=== PATIENT | female | born 1955 | race Caucasian/White ===

== ENCOUNTER 2019-08-13 04:57 | Inpatient (IN) ==
--- NOTE | 2019-07-21 19:38 | PAT Medication Instructions ---
Medication Instructions Date of Service July 21, 2019 Home Medications atenolol-chlorthalidone 1 tab PO QAM 07/15/19 [History Confirmed 07/15/19] cholecalciferol (vitamin D3) [Vitamin D3] 25 mcg PO DAILY 07/15/19 [History Confirmed 07/15/19] levothyroxine 112 mcg PO QAM 07/15/19 [History Confirmed 07/15/19] omeprazole 40 mg PO QAM 07/15/19 [History Confirmed 07/15/19] DO NOT take the morning of surgery cholecalciferol (vitamin D3) [Vitamin D3] 25 mcg PO DAILY 07/15/19 [History Confirmed 07/15/19] Take morning of surgery With a small sip of water, OTHERWISE NOTHING TO EAT OR DRINK AFTER MIDNIGHT: atenolol-chlorthalidone 1 tab PO QAM 07/15/19 [History Confirmed 07/15/19] levothyroxine 112 mcg PO QAM 07/15/19 [History Confirmed 07/15/19] omeprazole 40 mg PO QAM 07/15/19 [History Confirmed 07/15/19] Other Notes If you have any questions please call us at [phone] or [phone] or [phone] or [phone]
--- NOTE | 2019-07-22 11:03 | Anesthesiology Consultation ---
Date of Service July 22, 2019 Assessment & Plan (1) Encounter for pre-operative examination: - Awaiting review of preop testing (labs, EKG, CXR). - PCP: 07/16/2019: "medically optimized before surgery." Will forward preop t esting to PCP for their reference. Chart Review Chart Review: Patient seen in Pre Admission Testing Teaching & Discussion Pre-Anesthesia Teaching/Discussion Notes: Instructed NPO after midnight before surgery,except medications with 15 cc of water. Medication instructions provided according to the PAT guidelines. History Surgery Operation Date: 08/13/19 13:10 Proposed Procedures p Total Knee Arthroplasty - Ted Judd MD Height/Weight Height: 5 ft 7 in Weight: 133.3 kg Allergies Allergy/AdvReac Type Severity Reaction Status Date / Time aspirin Allergy Unknown Hives Verified 07/15/19 15:24 Penicillins Allergy Unknown Hives Verified 07/15/19 15:24 Medications Home Medications Medication Instructions Recorded Confirmed Last Taken atenolol-chlorthalidone 1 tab PO QAM 07/15/19 07/15/19 Unknown cholecalciferol (vitamin D3) 25 mcg PO DAILY 07/15/19 07/15/19 Unknown [Vitamin D3] levothyroxine 112 mcg PO QAM 07/15/19 07/15/19 07/15/19 omeprazole 40 mg PO QAM 07/15/19 07/15/19 07/15/19 Past Medical History Medical History Acid reflux controlled History of seizures as child (head injury at age 4), no seizure since age 13 History of skin cancer s/p Moh's procedure Hypertension Hypothyroidism Morbid obesity Osteoarthritis Exercise / Class Metabolic Activity II 4-5 Yardwork/Stairs/Walk up hill (one flight of stairs (no chest pain/no sob)) Past Family History Family History Other Family history of diabetes mellitus in father Past Surgical History Surgical History History of colonoscopy History of endoscopy History of tubal ligation History of wisdom tooth extraction Past Anesthesia History No Hx of Anesthesia Complications and No Family Hx of Anesthesia Complications History of PONV No Hx of PONV and No Hx of Motion Sickness Social History Smoking Status: Never smoker Do You Dip or Chew Tobacco: No Hx Alcohol Use: No Hx Substance Use: No substance use type: does not use Review of Systems Reflux controlled. Patient denies chest pain, shortness of breath, dyspnea on exertion, cough, wheezing, palpitations. Physical Exam Vital Signs VITALS BP 115/71 P 59 TEMP 99.2 SP02 97%RA RESP 18 PHYSICAL Full neck and c-spine range of motion. Full TMJ range of motion. TMD 3.5 finger breaths Mallampati Score 2 Dentition: partial upper, several missing on lower Lungs: clear throughout to auscultation Cardiac: regular rate and rhythm, no murmurs noted Spine: normal Carotid arteries: negative bruit Extremities: no edema
--- NOTE | 2019-07-22 11:48 | XRay Report ---
XR chest Pre-admission PA/Lat CLINICAL HISTORY: 64 years-old Female presenting with preoperative assessment. TECHNIQUE: PA and lateral views of the chest were obtained. COMPARISON: None. FINDINGS: Cardiomediastinal silhouette normal. Lungs and pleural spaces clear. Degenerative changes of the thor acic spine. Upper abdomen normal. IMPRESSION: 1. No acute cardiopulmonary disease. ACT 112: Negative or not required by law. Electronically signed by: Genaro Hagan M.D. 07/22/2019 11:46 AM
[2019-07-22 12:11] LABS: Appearance Urine Clear (Clear); Bilirubin Urine Negative (Negative); Blood Urine Negative (Negative); Color Urine Yellow; Glucose Urine UA Negative (Negative); Ketones Urine Trace (Negative); Leukocyte Esterase Urine Negative (Negative); Nitrite Urine Negative (Negative); Protein Urine Negative (Negative); Specific Gravity Urine 1.025 (1.000-1.030); Urobilinogen Urine Negative (Negative); pH Urine 5.5 (4.5-7.5)
[2019-07-22 12:11] LABS: Basophils # (auto) 0.01 K/uL (0-0.2); Basophils % (auto) 0.2 %; Eosinophils # (auto) 0.04 K/uL (0-0.5); Eosinophils % (auto) 0.6 %; Hematocrit (blood only) 38.8 % (37-47); Hemoglobin 12.3 g/dL (12.0-16.0); Immature Granulocytes # (auto) 0.04 K/uL (0.00-0.02); Immature Granulocytes % (auto) 0.6 %; Lymphocytes # (auto) 1.17 K/uL (1.2-3.4); Mean Corpuscular Hemoglobin 26.3 pg (25-34); Mean Corpuscular Hgb Conc 31.7 g/dL (32-36); Mean Corpuscular Volume 82.9 fL (80-100); Mean Platelet Volume 10.1 fL (7.4-10.4); Monocytes # (auto) 0.32 K/uL (0.11-0.59); Monocytes % (auto) 4.9 %; Neutrophils # (auto) 4.93 K/uL (1.4-6.5); Neutrophils % (auto) 75.7 %; Platelet Count 263 K/uL (130-400); RDW Coefficient of Variation 15.5 % (11.5-14.5); RDW Standard Deviation 46.6 fL (36.4-46.3); Red Blood Count 4.68 M/uL (4.2-5.4); White Blood Count 6.51 K/uL (4.8-10.8)
[2019-07-22 12:28] LABS: Estimated Average Glucose 114 mg/dl; Hemoglobin A1C 5.6 % (4.5-5.6); Partial Thromboplastin Time 27.7 Seconds (21.0-31.0); Prothrombin Time 9.9 Seconds (9.0-12.0)
[2019-07-22 14:08] LABS: Albumin Level 3.4 gm/dl (3.4-5.0); BUN Creatinine Ratio 22.1 (10-20); Calcium 9.5 mg/dl (8.5-10.1); Creatinine Clr Calc Pharmacy 69.5 ml/min; Est GFR (African American) 56.8; Potassium 3.4 mmol/L (3.5-5.1)
--- NOTE | 2019-07-22 22:54 | Electrocardiogram Report ---
Test Reason : Blood Pressure : / mmHG Vent. Rate : 061 BPM Atrial Rate : 061 BPM P-R Int : 200 ms QRS Dur : 142 ms QT Int : 480 ms P-R-T Axes : 065 034 051 degrees QTc Int : 483 ms Normal sinus rhythm Right bundle branch block Abnormal ECG No previous ECGs available Confirmed by Ariel Chavez ([id number]) on 07/22/2019 10:53:57 PM Referred By: Ted Judd Confirmed By:Ariel Chavez
--- NOTE | 2019-08-12 18:17 | History and Physical Report ---
DATE OF ADMISSION: 08/13/2019 CHIEF COMPLAINT: Chronic left knee pain. HISTORY OF PRESENT ILLNESS: This is a 64-year-old female patient of Dr. Judd'margaret complaining of chronic left knee pain, longstanding, now progressively getting worse. The patient has failed conservative treatment including intra-articular injections, tramadol, anti-inflammatories and home exercise program. The patient has increased pain with weightbearing activities and her pain does interfere with her activities of daily living. The patient has been diagnosed with end-stage osteoarthritis per clinical and radiographic exams. The patient wished to proceed with a left total knee arthroplasty. PAST MEDICAL HISTORY: Hypertension, peripheral neuropathy, childhood seizure disorder, hypothyroidism, rheumatoid arthritis, obesity, dental issues, skin cancer. SOCIAL HISTORY: Nonsmoker, nondrinker. PAST SURGICAL HISTORY: Tubal ligation. FAMILY HISTORY: Noncontributory. REVIEW OF SYSTEMS: The patient complains of chronic left knee pain and instability. Otherwise, denies any shortness of breath, chest pain, nausea, vomiting or any other joint complaints. MEDICATIONS: 1. Atenolol/chlorthalidone 50/25 daily. 2. Omeprazole 40 mg daily. 3. Levothyroxine 112 mcg daily. 4. Vitamin D3 1000 units daily. ALLERGIES: ASPIRIN, PENICILLIN. PHYSICAL EXAMINATION: GENERAL: Well-developed, well-nourished 64-year-old female in no acute distress. She is alert and oriented x3 and pleasant. HEENT: Normocephalic, atraumatic. Extraocular motions are intact. Pupils are equal and reactive to light. HEART: Regular rate and rhythm, no murmurs. LUNGS: Clear. ABDOMEN: Soft, nontender, bowel sounds present. EXTREMITIES: Left knee reveals limited range of motion of 0-95 degrees. She has a valgus deformity with lateral joint line tenderness. She has crepitation with a mild effusion. She has 4/5 strength. NEUROLOGIC: Neurovascularly, she is intact in the left lower extremity. DIAGNOSES: Left knee end-stage osteoarthritis, hypertension, peripheral neuropathy, history of childhood seizures, hypothyroidism, rheumatoid arthritis, obesity, dental issues and history of skin cancer. PLAN: The patient was advised of her diagnosis. Indications, risks, benefits, postop course have all been reviewed. The patient wished to proceed with a left total knee arthroplasty. Necessary consent forms, preoperative testing and clearances will be obtained.
[2019-08-13] MEDS ORDERED: ACETAMINOPHEN 500 MG TAB PO SCH (06:00)
[2019-08-13] MEDS ORDERED: VANCOMYCIN HCL 2,000 MG in SODIUM CHLORIDE 0.9% 500 ML IV SCH ×2 (06:00→18:00)
[2019-08-13] MEDS ORDERED: GABAPENTIN 600 MG DOSE PO SCH (06:00)
[2019-08-13] MEDS ORDERED: dexAMETHasone 4 MG TAB PO SCH (06:00)
[2019-08-13] MEDS ORDERED: CeleBREX 200 MG CAP PO SCH (06:00)
[2019-08-13] MEDS ORDERED: TRANEXAMIC ACID 1,000 MG **IV Intra-op IV SCH (06:00)
[2019-08-13] MEDS ORDERED: ROPIVACAINE 0.5% HCL/PF 150 MG, BUPIVACAINE 0.5% MPF 30 ML, EPINEPHrine 30MG/30ML (OR U... INFIL SCH (06:00)
[2019-08-13] MEDS ORDERED: METOCLOPRAMIDE HCL 10 MG TABLET PO SCH (06:00)
[2019-08-13] MEDS ORDERED: ROPIVACAINE 0.5% HCL/PF 150 MG, BUPIVACAINE 0.5% MPF 30 ML, EPINEPHrine 30MG/30ML (OR U... INSTIL SCH (06:00)
[2019-08-13] MEDS ORDERED: TRANEXAMIC ACID 1,000 MG **IV Pre-op IV SCH (06:00)
[2019-08-13] MEDS ORDERED: FAMOTIDINE 20 MG TAB PO SCH (06:00)
[2019-08-13] MEDS ORDERED: LR 500ML BOLUS, THEN 15ML/HR IV SCH (06:00)
[2019-08-13] MEDS ORDERED: BUPIVACAINE 0.5 % 5 MG/1 ML PF 10ML VIAL ONE (06:27)
[2019-08-13] MEDS ORDERED: ROPIVACAINE 0.5% 5 MG/ML 30 ML VIAL ONE (06:28)
[2019-08-13] MEDS ORDERED: EPINEPHrine INJ 1 MG/ML AMP ONE (06:28)
[2019-08-13] MEDS ORDERED: MIDAZOLAM HCL 1 MG/ML 2ML VIAL ONE (06:39)
[2019-08-13] MEDS ORDERED: PROPOFOL IV EMULSION 10 MG/ML 20 ML VIAL IV ONE ×3 (06:39→08:28)
[2019-08-13] MEDS ORDERED: LIDOCAINE HCL 2% 2 ML VIAL/AMP(20MG/ML) INFIL ONE (06:39)
[2019-08-13] MEDS ORDERED: fentaNYL citrate 100 MCG/2 ML VIAL ONE (06:39)
[2019-08-13] MEDS ORDERED: PHENYLEPHRINE 100MCG/ML 5ML SYR ONE (06:42)
[2019-08-13] MEDS ORDERED: ePHEDrine sulfate 50 MG/ML SYR ONE (06:42)
[2019-08-13] MEDS ORDERED: BACITRACIN INJ 50,000 UNIT VIAL ONE (06:44)
[2019-08-13] MEDS ORDERED: ORTHO JOINT ANESTHETIC ONE (06:48)
[2019-08-13] MEDS ORDERED: CeleBREX 200 MG CAP ONE (06:51)
--- NOTE | 2019-08-13 06:56 | History & Physical Bridge Note ---
Date of Service August 13, 2019 History & Physical Bridge Note I have examined the patient, reviewed the History & Physical and in the interval since the performance of the History & Physical I have noted the following changes of clinical significance: no changes noted
[2019-08-13] MEDS ORDERED: ATROPINE SULFATE 0.1 MG/ML 10ML SYR IV PRN (08:59)
[2019-08-13] MEDS ORDERED: ePHEDrine sulfate 50 MG/ML AMP IV PRN (08:59)
--- NOTE | 2019-08-13 09:18 | Operative Report ---
Post Operative Report Pre & Post Diagnosis Operation Date: 08/13/19 07:00 Pre-Op Diagnosis: Left Knee Osteoarthritis, morbid obesity BMI 46.2 Post-Op Diagnosis: Left Knee Osteoarthritis, morbid obesity BMI 46.2 I identified the patient and participated in the time-out.: Yes Procedure Operation Date: 08/13/19 07:00 Actual Procedures p Left Total Knee Arthroplasty(Left), lateral release, increased difficulty morbid obesity BMI 46.2- Ted Judd MD Surgeon Ted Judd MD Can Cutter BLAIR Uribe Estimated Blood Loss 5 Findings Consistent with Post-Op Diagnosis Specimens Bone cuts Drains 2 Hemovac Anesthesia Type MAC Spinal Regional Complications none Disposition Accompanied Patient To Recovery: No Disposition: Recovery Room Indications 64 of female with very severe osteoarthritis of the left knee. She is azej-vz-taav lateral compartment has moderate advanced patellofemoral osteoarthritis with lateral patellar malalignment and lateral patellar tilt. She has tricompartmental osteophytes. Description of Procedure Patient taken to the operating room the size under spinal MAC regional anesthesia. Patient was placed supine on the operating table. A pneumatic tourniquet was placed about the significantly obese left upper thigh. The left lower extremity was prepped and draped in sterile fashion. Knee exam demonstrated full knee extension valgus knee no pseudo laxity no instability. Range of motion 0 through 125. The leg was elevated exsanguinated with an Esmarch bandage and pneumatic tourniquet was raised to 350 millimeters of mercury. Skin incised sharply in longitudinal fashion. Subcutaneous flaps elevated. Incision was made through the medial retinaculum extending up in the mid third of the quadriceps tendon and down to the medial tibial tubercle. Intra-articular findings demonstrated marked synovitis with inflammatory synovitis, [id number] patellofemoral joint [id number]-[id number] lateral compartment tricompartmental OA chronic lateral meniscus tear. There was a hypoplastic lateral femoral condyle. The [employer] total knee arthroplasty system was used. To expose the knee the infrapatellar fat pad was resected. The meniscal remnants and cruciate ligaments were resected. The anterior fat pad over the femur in the area of the anterior flange of the femoral component was resected. Lateral synovial bands release. I performed a synovectomy in the gutters and suprapatellar pouch removing all the centrally inflamed synovial tissue with the electrocautery type synovectomy. Some loose bodies were removed. The femur was exposed. An intramedullary drill hole was made into the canal. A guide lillian was placed. Distal femoral cutting guide was adjusted to resect a 6 degree valgus cut with 8 millimeters distal femur resected. The knee was extended and a subperiosteal peel lateral release was performed around the patella. Patella width was measured and width was reproduced using a freehand cut technique and a 33 x 9 symmetrical patella component. The 3 drill holes were made and the excess lateral facet was beveled off to prevent any impi ngement. Attention was taken back to the femur which was exposed with retractors and the femoral sizing guide was pinned in position. The drill holes were placed in 3 of external rotation to match epicondylar axis. Femur sized for a 5 PS component. The 4-in-1 cutting block was placed and then the anterior posterior and chamfer cuts are made. The tibia was then subluxed. The external tibial cutting guide was just to make a perpendicular cut to the long axis of the tibia below the most deficient bone loss side. A lamina certified genetic counselor was used and the flexion extension gaps were balanced. This required lateral capsule release posterior lateral capsule release mobile posterior lateral osteophytes IT band release subperiosteal off the tibia with popliteus tendon maintained intact. All posterior osteophytes removed. All meniscal remnants were resected. The tibia exposed and the trial tibial component size 4 was externally rotated in line with the tibial tubercle and pinned in position. The trials and punch for the cemented stem and universal baseplate was used. The notch cutting device was centered appropriately and the femoral notch cut was made. The femoral trial was inserted. Trial tibial inserts were placed and size 13 gave balanced ligaments through flexion and extension. Patella tracking was assessed. The patella tracked laterally still so I did a formal lateral re lease leaving as much the synovium intact as I could and then the patella tracked centrally. The trial components were then removed and the orthomix anesthetic cocktail was injected per protocol. The knee was then copiously irrigated with pulsatile lavage antibiotic solution. Final components were then cemented with Simplex cement. Final components were Frida triathlon left posterior stabilized size 5 femoral component with femoral distal fixation pegs, size 4 universal tibial baseplate with a 12 x 50 mm cemented stem attached and the 13 posterior stabilized polyethylene tibial insert and the S 33 x 9 mm patella. While the cement cured the Betadine soak was used per protocol. After cement cured further pulsatile lavage irrigation performed and 2 Hemovac drains were brought out laterally. The quadriceps tendon and medial retinaculum were closed with figure of 8 #1 Vicryl sutures. The knee was taken through full range of motion and the repair was secure. The subcutaneous tissues were closed with 2-0 Vicryl sutures. Skin was closed with nain. Sterile dressings were applied. Patient procedure well. There was increased level difficulty due to morbid obesity throughout the procedure causing increased length of time of procedure of 25 minutes. Chucky PINTO was my physician assistant floor covering printer who assisted in patient positioning prepping and draping,leg positioning ,soft tissue retraction and instrument management and participated in the closing and will participate in postoperative care of the patient. The patient tolerated the procedure well. I attest to the content of the Intraoperative Record and any orders documented therein. Any exceptions are noted below.
--- NOTE | 2019-08-13 10:12 | XRay Report ---
TWO VIEWS LEFT KNEE CLINICAL HISTORY: Postoperative examination. FINDINGS: AP and crosstable lateral portable views of the left knee are obtained. A left knee arthrop lasty is in near anatomic alignment. There has been undersurface remodeling of the patella. No acute fracture is seen. There are expected postoperative changes around the knee including skin clips, a vivas rgical drain, soft tissue edema, and subcutaneous gas. IMPRESSION: Expected postoperative changes status post left knee arthroplasty. No acute fracture is s een. ACT 112: Negative or not required by law. Electronically signed by: Issac Villa M.D. 08/13/2019 10:11 AM
--- NOTE | 2019-08-13 10:42 | Anesthesiology Progress Note ---
Date of Service August 13, 2019 Anesthesia Post Procedure Vital Signs Vital Signs: Temp Pulse Pulse Resp BP Pulse Ox 08/13/19 10:35 61 12 122/62 96 08/13/19 10:25 74 14 121/65 98 08/13/19 10:15 71 19 120/69 98 08/13/19 10:05 72 16 119/62 97 08/13/19 09:55 72 12 129/58 L 97 08/13/19 09:45 79 17 118/57 L 97 08/13/19 09:35 36.0 C L 74 19 119/58 L 99 08/13/19 05:55 37.1 C 59 L 20 130/68 95 Transfer of Care Handoff Completed per policy Notes Mental Status: alert / awake / arousable Patient Amnestic to Procedure: Yes Nausea / Vomiting: adequately controlled Pain: adequately controlled Airway Patency, RR, SpO2: stable & adequate BP & HR: stable & adequate Hydration State: stable & adequate Neuraxial Anesthesia: was administered and sensory block is resolving Anesthetic Complications: no major complications apparent
[2019-08-13] MEDS ORDERED: ONDANSETRON INJ 2 MG/ML 2 ML VIAL IV PRN (11:19)
[2019-08-13] MEDS ORDERED: HYDROmorphone INJ 0.5 MG/0.5 ML SYR IV PRN (11:19)
[2019-08-13] MEDS ORDERED: NALOXONE HCL 0.4 MG/1 ML VIAL/CARP IV PRN (11:19)
[2019-08-13] MEDS ORDERED: MAGNESIUM HYDROXIDE SUSP 30 ML UDC PO PRN (11:19)
[2019-08-13] MEDS ORDERED: VANCOMYCIN CONSULT ACTIVE PRN (11:19)
[2019-08-13] MEDS ORDERED: bisacodyL 10 MG SUPP PR PRN (11:19)
[2019-08-13] MEDS: SODIUM CHLORIDE 0.9% 1000ML 1,000 ML IV SCH (12:06)
--- NOTE | 2019-08-13 13:06 | Consultation ---
Date of Consultation August 13, 2019 Assessment & Plan (1) Osteoarthritis of left knee: S/P L TKA POD #[address] Dutch MARIA 5ml; hemovac in place Tolerated procedure well Pain/wound management per Ortho Activity and therapy as directed by Ortho Incentive spirometry encouraged, already titrated off oxygen Monitor H&H Xarelto for DVT prophylaxis (2) Hypertension: Blood pressure stable Continue atenolol-chlorthalidone (3) Acid reflux: Asymptomatic Continue omeprazole (4) Hypothyroidism: Continue levothyroxine (5) Morbid obesity: Encourage lifestyle modifications BMI 46.2 (6) DVT prophylaxis: Xarelto Disposition: Per primary Follow-up: PCP Dr. Dozier upon discharge Patient was seen and examined in collaboration with Dr. Simon, please see addendum Starting 08/14/[address] pt [address] be [address] Damon service Thank you for this consultation. We will follow the patient with you during their hospital stay. You can reach a member of the [facility] Team 22/01 via pager @ [phone]. Supervising Physician Co-Signing Physician Notes I saw this patient with the physician assistant federal public defender, I participated in the history, physical, review of systems, and physical exam. I reviewed the medications with the patient and the physician assistant federal public defender and helped reconcile the medications. I helped take a detailed family and social history as well. I formulated the assessment and plan personally with the physician assistant federal public defender and went over it with the patient. Physical Exam Gen-AAO x 3, NAD, Afebrile, obese Head-NCAT, EOMI, PERRLA, Anicteric Sclera, No Posterior Pharyngeal Erythema Neck-Supple, No JVD, No Thyromegaly, No Masses, No LAD, No Bruits Lungs-Clear to Auscultation Bilaterally, No Rales, No Rhonchi, No Wheezing, No Crepitus Chest-No S4, +S1, +S2, No S3, No Murmurs, No Rubs, No Gallops, No Ectopy Abdomen-Soft, Bowel Sounds Present, Non Tender, Non Distended, No Hepatomegaly, No Splenomegaly, No Palpable Masses, No Rebound, No Rigidity, No Guarding Musculoskeletal-L Knee c Ice Pack and wrapped Extremities-No Cyanosis, No Clubbing, No Edema Nuero-Cranial Nerves II-XII grossly intact, Motor WNL, DTRs WNL, Strength WNL, Non Focal Psych-Normal Mood History of Present Illness Requesting Physician: Dr. Judd Reason for Consultation: Postop medical management Attending Physician: Ted Judd MD History of Present Illness This is a 64 yr old F who has significant PMH of HTN, HLD, Gerd, hiatal hernia, hypothyroidism who presents to [facility] for elective left total knee arthroplasty by Dr. Judd. She failed outpatient conservative treatment for left knee OA DJD. Postoperatively she feels well. Currently denies any pain, but is also still under anesthesia. She denies any post operative nausea, vomiting, lightheadedness, dizziness. Further denies any fever, chills, sweats, chest pain, shortness breath, palpitations, abdominal pain, change in bowel or urinary habits. Pt follows with Dr. Dozier in [place] for PCP. Has history of hypertension well-controlled on atenolol chlorthalidone. She has history of hypothyroidism and on levothyroxine. Last TSH was 3.07 on 01/2019. She further has history of hiatal hernia and GERD but states, "I was never told I had hiatal hernia." This is well controlled on omeprazole. Allergies Allergy/AdvReac Type Severity Reaction Status Date / Time aspirin Allergy Unknown Hives Verified 08/13/19 05:46 Penicillins Allergy Unknown Hives Verified 08/13/19 05:46 Home Medications Home Medications Medication Instructions Recorded Confirmed Type atenolol-chlorthalidone 1 tab PO QAM 07/15/19 08/13/19 History cholecalciferol (vitamin D3) 1,000 unit PO DAILY 07/15/19 08/13/19 History [Vitamin D3] levothyroxine 112 mcg PO QAM 07/15/19 07/15/19 History omeprazole 40 mg PO QAM 07/15/19 07/15/19 History Patient History Medical History Acid reflux controlled History of seizures as child (head injury at age 4), no seizure since age 13 History of skin cancer s/p Moh's procedure Hypertension Hypothyroidism Morbid obesity Osteoarthritis Surgical History History of colonoscopy History of endoscopy History of tubal ligation History of wisdom tooth extraction Family History (Updated 08/13/19 @ 12:56 by Rafaela Tiwari PA-C) Father Coronary heart disease hx of CABG Diabetes Mother Atrial fibrillation Other Family history of diabetes mellitus in father Social History Preferred Language: [place]ian Communication Ability: Effective Machine Feeder Required: No Beliefs That Will Affect Care: None Current Living Situation: Parent Current Living Situation Comment: MOTHER Other Information That Helps Us Care for You: No Feels Safe at Home: Yes Smoking Status: Never smoker Do You Dip or Chew Tobacco: No ; Hx Alcohol Use: No Hx Substance Use: No Review of Systems Review of Systems: All systems reviewed & are unremarkable except as noted in HPI & below Physical Exam Physical Exam: Constitutional: WD/WN, morbidly obese, vitals as above, NAD, sitting up in bed, pleasant, conversing easily Head: Normocephalic, Atraumatic Eyes: PERRL, conjunctivae normal, anicteric sclerae ENMT: external ear and nose normal, oropharynx normal Neck: trachea midline, no thyromegaly normal visual inspection Respiratory: normal respiratory effort, lungs clear to auscultation, no wheeze, rales, rhonchi. Normal insp/exp effort, no accessory muscle use Cardiovascular: RRR, no murmur, no edema Vessels: no JVD or carotid bruit Chest: normal inspection of chest Abdomen: normal bowel sounds, soft, nontender, no hepatosplenomegaly Musculoskeletal: no cyanosis or clubbing, extremities motor strength 5/5 b/l upper ext. L Knee dressing CDI, b/l teds in place Skin: no rashes, warm and dry normal turgor Neurologic: PERRL, EOMI, accommodation nl, no face palsy, no dysarthria CN's II-XI intact bilaterally and moves all extremities Psychiatric: A+Ox3, euthymic affect Lymphatic: no cervical or axillary lymphadenopathy : deferred Results & Data ([facility]) Vital Signs (Past 12 Hours) Vital Signs Temp Pulse Pulse Resp BP Pulse Ox 08/13/19 12:14 36.4 C L 62 16 133/72 96 08/13/19 11:48 36.4 C L 55 L 16 132/71 99 08/13/19 11:21 36.6 C 68 16 113/64 96 08/13/19 11:00 60 14 110/67 99 08/13/19 10:45 36.1 C L 68 18 125/68 98 08/13/19 10:35 61 12 122/62 96 08/13/19 10:25 74 14 121/65 98 08/13/19 10:15 71 19 120/69 98 08/13/19 10:05 72 16 119/62 97 08/13/19 09:55 72 12 129/58 L 97 08/13/19 09:45 79 17 118/57 L 97 08/13/19 09:35 36.0 C L 74 19 119/58 L 99 08/13/19 05:55 37.1 C 59 L 20 130/68 95 Laboratory Results Preoperative labs CBC: H&H 12.3 and 38.8, WBC 6.51, platelet 263 BMP: Sodium 136, K3.4, BUN 26, creatinine 1.18, glucose 140 Last A1c 5.4 08/21/2018 Diagnostic Findings CXR: IMPRESSION: 1. No acute cardiopulmonary disease. Knee Xray: IMPRESSION: Expected postoperative changes status post left knee arthroplasty. No acute fracture is seen. Medications Administered Sodium Chloride (Nss 1000ml) 1,000 mls @ 100 mls/hr IV .Q10H [facility] Stop: 08/14/19 06:00 Last Admin: 08/13/19 12:06 Dose: 100 mls/hr Documented by: [id number] Discontinued Medications Acetaminophen (Tylenol) 1,000 mg PO PREOP [facility] Stop: 08/13/19 18:00 Last Admin: 08/13/19 05:51 Dose: 1,000 mg Documented by: [id number] Bacitracin (Bacitracin) Confirm Administered Dose 50,000 units .ROUTE .STK-MED ONE Stop: 08/13/19 06:45 Last Admin: 08/13/19 08:50 Dose: 50,000 units Documented by: [id number] Celecoxib (Celebrex) Confirm Administered Dose 200 mg .ROUTE .STK-MED ONE Stop: 08/13/19 06:52 Last Admin: 08/13/19 06:52 Dose: 200 mg Documented by: [id number] Dexamethasone (Decadron) 8 mg PO PREOP [facility] Stop: 08/13/19 18:00 Last Admin: 08/13/19 05:50 Dose: 8 mg Documented by: [id number] Famotidine (Pepcid) 20 mg PO PREOP [facility] Stop: 08/13/19 18:00 Last Admin: 08/13/19 05:51 Dose: 20 mg Documented by: [id number] Gabapentin (Neurontin) 600 mg PO PREOP [facility] Stop: 08/13/19 18:00 Last Admin: 08/13/19 05:51 Dose: 600 mg Documented by: [id number] Lactated Ringer's (Lr) 1,000 mls @ 15 mls/hr IV .Q24H [facility] Stop: 08/13/19 18:00 Last Infusion: 08/13/19 07:14 Dose: 0 mls/hr Documented by: [id number] Admin: 08/13/19 05:49 Dose: 15 mls/hr Documented by: [id number] Vancomycin HCl 2,000 mg/ (Sodium Chloride) 540 mls @ 200 mls/hr IV PREOP [facility] Stop: 08/14/19 05:59 Last Infusion: 08/13/19 11:28 Dose: 0 mls/hr Documented by: [id number] Admin: 08/13/19 05:50 Dose: 200 mls/hr Documented by: [id number] Tranexamic Acid (Tranexamic Acid / 0.7% Nacl) 1,000 mg in 100 mls @ 600 mls/hr IV TODAY@0600 [facility] Stop: 08/13/19 18:00 Last Infusion: 08/13/19 07:05 Dose: 0 mls/hr Documented by: [id number] Admin: 08/13/19 06:55 Dose: 600 mls/hr Documented by: [id number] Tranexamic Acid (Tranexamic Acid / 0.7% Nacl) 1,000 mg in 100 mls @ 600 mls/hr IV TODAY@0600 [facility] Stop: 08/13/19 18:00 Last Infusion: 08/13/19 11:27 Dose: 0 mls/hr Documented by: [id number] Admin: 08/13/19 08:50 Dose: 600 mls/hr Documented by: [id number] Ropivacaine 150 mg/Bupivacaine HCl 30 ml/Epinephrine HCl 0.15 mg/Ketorolac Tromethamine 30 mg/Dexamethasone 4 mg/ Ketamine HCl 10 mg/ Clonidine HCl 100 mcg/ Sodium Chloride 93.35 mls @ 0 mls/hr INSTIL PREOP [facility] Stop: 08/13/19 18:00 Last Admin: 08/13/19 08:50 Dose: 93.35 mls/hr Documented by: [id number] Metoclopramide HCl (Reglan) 10 mg PO PREOP [facility] Stop: 08/13/19 18:00 Last Admin: 08/13/19 05:51 Dose: 10 mg Documented by: [id number] Miscellaneous (Ortho Joint Anesthetic) Confirm Administered Dose 1 ea .ROUTE . STK-MED ONE Stop: 08/13/19 06:49 Last Admin: 08/13/19 08:53 Dose: Not Given Documented by: [id number] ECG Rate (beats per minute): 61 Rhythm: normal sinus Findings: + RBBB and + prolonged QT (QTC 483)
[2019-08-13] MEDS: ACETAMINOPHEN 500 MG TAB PO SCH ×2 (13:18→21:04)
[2019-08-13] MEDS ORDERED: VANCOMYCIN HCL 2,000 MG in SODIUM CHLORIDE 0.9% 250 ML IV SCH (18:00)
[2019-08-13] MEDS: DOCUSATE SODIUM 100 MG CAP PO SCH (21:04)
[2019-08-13] MEDS: SENNA 8.6 MG TAB PO SCH (21:04)
[2019-08-13] MEDS: CeleBREX 200 MG CAP PO SCH (21:04)
[2019-08-14] MEDS: SODIUM CHLORIDE 0.9% 1000ML 1,000 ML IV SCH (01:00)
[2019-08-14] MEDS: ACETAMINOPHEN 500 MG TAB PO SCH ×3 (05:18→21:24)
[2019-08-14] MEDS: LEVOTHYROXINE SODIUM 112 MCG TABLET PO SCH (05:18)
[2019-08-14 05:37] LABS: Hematocrit (blood only) 31.8 % (37-47); Hemoglobin 10.4 g/dL (12.0-16.0); Mean Corpuscular Hemoglobin 26.7 pg (25-34); Mean Corpuscular Hgb Conc 32.7 g/dL (32-36); Mean Corpuscular Volume 81.5 fL (80-100); Mean Platelet Volume 9.5 fL (7.4-10.4); Platelet Count 193 K/uL (130-400); RDW Coefficient of Variation 15.6 % (11.5-14.5); White Blood Count 6.97 K/uL (4.8-10.8)
[2019-08-14 06:10] LABS: BUN Creatinine Ratio 25.1 (10-20); Calcium 8.8 mg/dl (8.5-10.1); Creatinine Clr Calc Pharmacy 94.6 ml/min; Est GFR (African American) 82.2; Est GFR (Non-African American) 70.9; Potassium 3.2 mmol/L (3.5-5.1)
[2019-08-14] MEDS ORDERED: POTASSIUM CHLORIDE 20 MEQ TABCR PO STA (07:40)
[2019-08-14] MEDS: DOCUSATE SODIUM 100 MG CAP PO SCH ×2 (08:22→21:22)
[2019-08-14] MEDS: MULTIVITAMIN TAB PO SCH (08:22)
[2019-08-14] MEDS: PANTOprazole 40 MG TAB PO SCH (08:22)
[2019-08-14] MEDS: CHOLECALCIFEROL 1,000 UNITS 25 MCG TAB PO SCH (08:22)
[2019-08-14] MEDS: CeleBREX 200 MG CAP PO SCH ×2 (08:22→21:22)
[2019-08-14] MEDS: ATENOLOL 50 MG TABLET PO SCH (08:23)
[2019-08-14] MEDS: RIVAROXABAN 10 MG TABLET PO SCH (08:23)
--- NOTE | 2019-08-14 08:37 | Hospitalist Progress Note ---
Date of Service August 14, 2019 Assessment & Plan (1) Osteoarthritis of left knee: S/P L TKA POD #[address] Judd EBL 5ml; hemovac in place output 160ml Tolerated procedure well Pain/wound management per Ortho Activity and therapy as directed by Ortho Incentive spirometry encouraged, Monitor H&H : 10.4 and 31.8 ( pre op 12.3 and 38.8) expected post operative, likely dilutional given IVF Xarelto for DVT prophylaxis (2) Hypertension: Blood pressure stable Continue atenolol hold chlorthalidone (3) Hypokalemia: K 3.2 today give 40meq KCL x 1 now start daily 20meq KCL / due to pt being on chlorthalidone Pre op K 3.4 (4) Acid reflux: Asymptomatic Continue omeprazole (5) Hypothyroidism: Continue levothyroxine (6) Morbid obesity: Encourage lifestyle modifications BMI 46.2 (7) DVT prophylaxis: Xarelto Disposition: Per primary Follow-up: PCP Dr. Dozier upon discharge Patient was seen and examined in collaboration with , please see addendum Thank you for this consultation. We will follow the patient with you during their hospital stay. You can reach a member of the [facility] Team 22/01 via pager @ [phone]. Admission and Anticipated Discharge Date Admission Date: August 13, 2019 Supervising Physician Co-Signing Physician Notes HISTORY: Record reviewed. Patient interviewed and examined. Care coordinated with Rafaela Tiwari PA-C. Please refer to her documentation for complete history. Doing very well postoperatively. No chest pain, cough, SOB, nausea, vomiting. Pain well-controlled. PT went well today. EXAM: General- no distress Lungs- clear to auscultation; no respiratory distress Cardiovascular- RRR; no gallop; no JVD; trace pretibial edema Abdomen- + bowel sounds, soft, nontender Extremities- no cyanosis; no calf tenderness; left knee bandaged Neuro- alert, oriented Skin- warm & dry DATA: Hgb 10.4. K 3.2. Other lab studies as noted. ASSESSMENT AND PLAN: Doing well s/p left TKA. K low. On chlorthalidone. Receiving KCl. Discharge on KCl 20 mEq daily- Rx entered via discharge process. PCP to check f/u K in clinic. Please refer to BLAIR Tiwari's documentation for discussion of other issues. Thank you for this consultation. We will follow the patient with you during their hospital stay. My cell # is [phone]. You can reach a member of the [facility] Team 22/01 via pager @ [phone]. Subjective Patient was seen and examined in room 308-1. Follow up L TKA POD #1. She didn't sleep well last evening due to discomfort of bed and noise. Pain currently 11/08. "I expected pain to be much worse by now." Denies f/c/s, dizz iness, lightheaded, chest pain, sob, n/v or abdominal pain. She is urinating without difficulty. Appetite is very good. Doing incentive spirometry q1hr while awake. Review of Systems Review of Systems: All systems reviewed & are unremarkable except as noted in HPI & below Physical Exam Physical Exam: Gen: WD/WN, F, obese, NAD, A&O x3 HEENT: Normocephalic, atraumatic, conjunctivae moist, sclerae anicteric, mucous membranes moist. Lung: Clear to Auscultation bilaterally, no wheezes/rales/rhonchi Heart: Regular rate, regular rhythm, no murmurs, rubs, or gallops Abdomen: obese abd, Soft, NT, ND +BS x 4 Extremities: Trace LLE edema, dressing CDI, Ice pack in place. Teds b/l. No RLE Edema Skin: Warm, no rash, negative turgor. Results & Data ([facility]) Vital Signs (Past 12 Hours) Vital Signs Temp Pulse Pulse Resp BP Pulse Ox 08/14/19 08:13 36.5 C 54 L 18 124/77 97 08/14/19 03:05 36.6 C 58 L 16 126/69 96 08/13/19 23:50 36.5 C 60 18 118/63 96 Laboratory Results Short CBC 07/22/19 08/14/19 08/14/19 Range/Units 11:20 05:19 05:19 WBC 6.97 (4.8-10.8) K/uL Hgb 10.4 L (12.0-16.0) g/dL Hct 31.8 L (37-47) % Plt Count 193 (130-400) K/uL Potassium 3.4 L 3.2 L (3.5-5.1) mmol/L BMP 08/14/19 05:19 Sodium 139 Potassium 3.2 L Chloride 105 Carbon Dioxide 29 BUN 22 H Creatinine 0.87 Glucose 129 H Calcium 8.8 Medications Administered Acetaminophen (Tylenol) 1,000 mg PO Q8 [facility] Stop: 09/12/19 13:59 Last Admin: 08/14/19 05:18 Dose: 1,000 mg Documented by: [id number] Admin: 08/13/19 21:04 Dose: 1,000 mg Documented by: [id number] Admin: 08/13/19 13:18 Dose: 1,000 mg Documented by: [id number] Atenolol (Tenormin) 50 mg PO [facility] Stop: 09/13/19 08:59 Last Admin: 08/14/19 08:23 Dose: 50 mg Documented by: [id number] Celecoxib (Celebrex) 200 mg PO BID [facility] Stop: 09/12/19 20:59 Last Admin: 08/14/19 08:22 Dose: 200 mg Documented by: [id number] Admin: 08/13/19 21:04 Dose: 200 mg Documented by: [id number] Chlorthalidone (Hygroton) 25 mg PO [facility] Stop: 09/13/19 08:59 Last Admin: 08/14/19 08:22 Dose: 25 mg Documented by: [id number] Docusate Sodium (Colace) 100 mg PO BID [facility] Stop: 09/12/19 20:59 Last Admin: 08/14/19 08:22 Dose: 100 mg Documented by: [id number] Admin: 08/13/19 21:04 Dose: 100 mg Documented by: [id number] [facility] Stop: 09/13/19 06:29 Last Admin: 08/14/19 05:18 Dose: 112 mcg Documented by: [id number] Multivitamins (Multivitamin Tab) 1 tab PO [facility] Stop: 09/13/19 08:59 Last Admin: 08/14/19 08:22 Dose: 1 tab Documented by: [id number] [facility]oprazole [facility] ([facility]ix) [facility] Stop: 09/13/19 07:59 Last Admin: 08/14/19 08:22 Dose: 40 mg Documented by: [id number] Rivaroxaban (Xarelto) 10 mg PO DAILY [facility] Stop: 09/13/19 08:59 Last Admin: 08/14/19 08:23 Dose: 10 mg Documented by: [id number] Sennosides (Senokot) 17.2 mg PO HS [facility] Stop: 09/12/19 20:59 Last Admin: 08/13/19 21:04 Dose: 17.2 mg Documented by: [id number] Vitamin D (Vitamin D3) 1,000 units PO DAILY [facility] Stop: 09/13/19 08:59 Last Admin: 08/14/19 08:22 Dose: 1,000 units Documented by: [id number] Discontinued Medications Acetaminophen (Tylenol) 1,000 mg PO PREOP [facility] Stop: 08/13/19 18:00 Last Admin: 08/13/19 05:51 Dose: 1,000 mg Documented by: [id number] Bacitracin (Bacitracin) Confirm Administered Dose 50,000 units .ROUTE .STK-MED ONE Stop: 08/13/19 06:45 Last Admin: 08/13/19 08:50 Dose: 50,000 units Documented by: [id number] Celecoxib (Celebrex) Confirm Administered Dose 200 mg .ROUTE .STK-MED ONE Stop: 08/13/19 06:52 Last Admin: 08/13/19 06:52 Dose: 200 mg Documented by: [id number] Dexamethasone (Decadron) 8 mg PO PREOP [facility] Stop: 08/13/19 18:00 Last Admin: 08/13/19 05:50 Dose: 8 mg Documented by: [id number] Famotidine (Pepcid) 20 mg PO PREOP [facility] Stop: 08/13/19 18:00 Last Admin: 08/13/19 05:51 Dose: 20 mg Documented by: [id number] Gabapentin (Neurontin) 600 mg PO PREOP [facility] Stop: 08/13/19 18:00 Last Admin: 08/13/19 05:51 Dose: 600 mg Documented by: [id number] Lactated Ringer's (Lr) 1,000 mls @ 15 mls/hr IV .Q24H [facility] Stop: 08/13/19 18:00 Last Infusion: 08/13/19 07:14 Dose: 0 mls/hr Documented by: [id number] Admin: 08/13/19 05:49 Dose: 15 mls/hr Documented by: [id number] Vancomycin HCl 2,000 mg/ (Sodium Chloride) 540 mls @ 200 mls/hr IV PREOP [facility] Stop: 08/14/19 05:59 Last Infusion: 08/13/19 11:28 Dose: 0 mls/hr Documented by: [id number] Admin: 08/13/19 05:50 Dose: 200 mls/hr Documented by: [id number] Tranexamic Acid (Tranexamic Acid / 0.7% Nacl) 1,000 mg in 100 mls @ 600 mls/hr IV TODAY@0600 [facility] Stop: 08/13/19 18:00 Last Infusion: 08/13/19 07:05 Dose: 0 mls/hr Documented by: [id number] Admin: 08/13/19 06:55 Dose: 600 mls/hr Documented by: [id number] Tranexamic Acid (Tranexamic Acid / 0.7% Nacl) 1,000 mg in 100 mls @ 600 mls/hr IV TODAY@0600 [facility] Stop: 08/13/19 18:00 Last Infusion: 08/13/19 11:27 Dose: 0 mls/hr Documented by: [id number] Admin: 08/13/19 08:50 Dose: 600 mls/hr Documented by: [id number] Ropivacaine 150 mg/Bupivacaine HCl 30 ml/Epinephrine HCl 0.15 mg/Ketorolac Tromethamine 30 mg/Dexamethasone 4 mg/ Ketamine HCl 10 mg/ Clonidine HCl 100 mcg/ Sodium Chloride 93.35 mls @ 0 mls/hr INSTIL PREOP [facility] Stop: 08/13/19 18:00 Last Admin: 08/13/19 08:50 Dose: 93.35 mls/hr Documented by: [id number] Sodium Chloride (Nss 1000ml) 1,000 mls @ 100 mls/hr IV .Q10H [facility] Stop: 08/14/19 06:00 Last Admin: 08/14/19 01:00 Dose: Not Given Documented by: [id number] Infusion: 08/14/19 00:58 Dose: 0 mls/hr Documented by: [id number] Admin: 08/13/19 12:06 Dose: 100 mls/hr Documented by: [id number] Vancomycin HCl 2,000 mg/ (Sodium Chloride) 540 mls @ 200 mls/hr IV Q12H [facility] Stop: 08/13/19 23:59 Last Infusion: 08/13/19 21:02 Dose: 0 mls/hr Documented by: [id number] Admin: 08/13/19 17:32 Dose: 200 mls/hr Documented by: [id number] Metoclopramide HCl (Reglan) 10 mg PO PREOP [facility] Stop: 08/13/19 18:00 Last Admin: 08/13/19 05:51 Dose: 10 mg Documented by: [id number] Miscellaneous (Ortho Joint Anesthetic) Confirm Administered Dose 1 ea .ROUTE .STK-MED ONE Stop: 08/13/19 06:49 Last Admin: 08/13/19 08:53 Dose: Not Given Documented by: [id number] Potassium Chloride (Klor-Con M20) 40 meq PO NOW [facility] Stop: 08/14/19 07:41 Last Admin: 08/14/19 08:22 Dose: 40 meq Documented by: [id number]
[2019-08-14] MEDS ORDERED: CHLORTHALIDONE 25 MG TAB PO SCH ×2 (09:00)
[2019-08-14] MEDS ORDERED: PANTOprazole 40 MG TAB PO SCH (09:00)
[2019-08-14] MEDS ORDERED: NON-FORMULARY MEDICATION (Atenolol-Chlorthalidone 1 TAB) PO SCH (09:00)
--- NOTE | 2019-08-14 09:31 | Orthopedic Progress Note ---
Date of Service August 14, 2019 Assessment & Plan (1) Osteoarthritis of left knee: POD #1, Left TKA PT/ OT DVT proph- Xarelto D/C planning- [facility] As per arnold. Admission and Anticipated Discharge Date Admission Date: August 13, 2019 Subjective POD #1, Doing well. Denies SOB, CP, N/V. Pain controlled well. Wishes Rehab on D/C. K+ 3.2 this AM, medicine gave KCL Physical Exam Physical Exam: Left knee dressings/ drain c/d/i. Toes/ ankle mobile. No calf tenderness. A&Ox3 Results & Data ([facility]) Vital Signs (Past 12 Hours) Vital Signs Temp Pulse Pulse Resp BP Pulse Ox 08/14/19 08:13 36.5 C 54 L 18 124/77 97 08/14/19 03:05 36.6 C 58 L 16 126/69 96 08/13/19 23:50 36.5 C 60 18 118/63 96
--- NOTE | 2019-08-14 09:51 | Anesthesiology Progress Note ---
Date of Service August 14, 2019 Anesthesia Post Procedure Vital Signs Vital Signs: Temp Pulse Pulse Resp BP Pulse Ox 08/14/19 08:13 36.5 C 54 L 18 124/77 97 08/14/19 03:05 36.6 C 58 L 16 126/69 96 08/13/19 23:50 36.5 C 60 18 118/63 96 08/13/19 19:30 36.4 C L 66 16 129/70 93 08/13/19 15:28 36.4 C L 63 16 113/67 93 08/13/19 12:14 36.4 C L 62 16 133/72 96 08/13/19 11:48 36.4 C L 55 L 16 132/71 99 08/13/19 11:21 36.6 C 68 16 113/64 96 08/13/19 11:00 60 14 110/67 99 08/13/19 10:45 36.1 C L 68 18 125/68 98 08/13/19 10:35 61 12 122/62 96 08/13/19 10:25 74 14 121/65 98 08/13/19 10:15 71 19 120/69 98 08/13/19 10:05 72 16 119/62 97 08/13/19 09:55 72 12 129/58 L 97 Notes Mental Status: alert / awake / arousable and participated in evaluation Patient Amnestic to Procedure: Yes Nausea / Vomiting: adequately controlled Pain: adequately controlled Airway Patency, RR, SpO2: stable & adequate BP & HR: stable & adequate Hydration State: stable & adequate Neuraxial Anesthesia: was administered and sensory block resolved Anesthetic Complications: no major complications apparent and Pt Satisfied with anesthetic care
[2019-08-14] MEDS: OXYCODONE HCL IR 5 MG TAB (IMMEDIATE RELEASE) PO PRN ×3 (11:49→20:22)
[2019-08-14] MEDS: SENNA 8.6 MG TAB PO SCH (21:25)
[2019-08-15] MEDS: OXYCODONE HCL IR 5 MG TAB (IMMEDIATE RELEASE) PO PRN ×2 (03:48→09:04)
[2019-08-15] MEDS: PANTOprazole 40 MG TAB PO SCH (05:05)
[2019-08-15] MEDS: ACETAMINOPHEN 500 MG TAB PO SCH (05:05)
[2019-08-15] MEDS: LEVOTHYROXINE SODIUM 112 MCG TABLET PO SCH (05:05)
[2019-08-15 05:36] LABS: Hematocrit (blood only) 31.9 % (37-47); Mean Corpuscular Hgb Conc 31.3 g/dL (32-36); Mean Corpuscular Volume 82.9 fL (80-100); Mean Platelet Volume 9.3 fL (7.4-10.4); Platelet Count 213 K/uL (130-400); RDW Coefficient of Variation 15.9 % (11.5-14.5); RDW Standard Deviation 47.9 fL (36.4-46.3); Red Blood Count 3.85 M/uL (4.2-5.4); White Blood Count 6.45 K/uL (4.8-10.8)
[2019-08-15 06:04] LABS: BUN Creatinine Ratio 21.6 (10-20); Calcium 8.5 mg/dl (8.5-10.1); Creatinine Clr Calc Pharmacy 76.2 ml/min; Est GFR (African American) 63.3; Est GFR (Non-African American) 54.6; Potassium 3.3 mmol/L (3.5-5.1)
[2019-08-15] MEDS ORDERED: POTASSIUM CHLORIDE 20 MEQ TABCR PO ONE (07:11)
[2019-08-15] MEDS: ATENOLOL 50 MG TABLET PO SCH (07:41)
[2019-08-15] MEDS: RIVAROXABAN 10 MG TABLET PO SCH (07:41)
[2019-08-15] MEDS: CeleBREX 200 MG CAP PO SCH (07:41)
[2019-08-15] MEDS: DOCUSATE SODIUM 100 MG CAP PO SCH (07:41)
[2019-08-15] MEDS: MULTIVITAMIN TAB PO SCH (07:41)
[2019-08-15] MEDS: CHOLECALCIFEROL 1,000 UNITS 25 MCG TAB PO SCH (07:41)
--- NOTE | 2019-08-15 08:24 | Orthopedic Progress Note ---
Date of Service August 15, 2019 Assessment & Plan (1) Osteoarthritis of left knee: POD #2, Left TKA PT/ OT DVT proph- Xarelto D/C planning- HH today if medicine okay w K+. As per medicine. Admission and Anticipated Discharge Date Admission Date: August 13, 2019 Subjective POD #2, Doing well. Denies SOB, CP, N/V. Pain controlled well. Wishes Rehab on D/C. K+ 3.3 this AM. Physical Exam Physical Exam: Left knee silverlon dressing c/d/o, no drainage. Toes/ ankle mobile. No calf tenderness. A&Ox3 VSS Results & Data ([facility]) Vital Signs (Past 12 Hours) Vital Signs Temp Pulse Resp BP Pulse Ox 08/15/19 06:22 106/60 08/15/19 06:07 36.5 C 51 L 16 99/62 L 97 08/14/19 23:11 36.5 C 53 L 16 107/69 97
--- NOTE | 2019-08-15 09:52 | Hospitalist Progress Note ---
Date of Service August 15, 2019 Assessment & Plan (1) Osteoarthritis of left knee: S/P L TKA POD #[address] Judd EBL 5ml; hemovac in place output 160ml Tolerated procedure well Pain/wound management per Ortho Activity and therapy as directed by Ortho Incentive spirometry encouraged, Monitor H&H : 10.0 and 31.9 ( pre op 12.3 and 38.8) expected post operative, likely dilutional given IVF Xarelto for DVT prophylaxis (2) Hypertension: Blood pressure stable Continue atenolol Resume chlorthalidone at discharge (3) Hypokalemia: K 3.3 give additional 40meq KCL x 1 this a.m. Recommend discharge patient on 20 mEq of KCl daily, prescription already sent to pharmacy via Dr. Damon Will discuss with PCP to follow-up at discharge. (4) Acid reflux: Asymptomatic Continue omeprazole (5) Hypothyroidism: Continue levothyroxine (6) Morbid obesity: Encourage lifestyle modifications BMI 46.2 (7) DVT prophylaxis: Xarelto Disposition: Per primary Follow-up: PCP Dr. Dozier upon discharge Patient was seen and examined in collaboration with , please see addendum Thank you for this consultation. We will follow the patient with you during their hospital stay. You can reach a member of the [facility] via pager @ [phone]. Admission and Anticipated Discharge Date Admission Date: August 13, 2019 Anticipated date of discharge: 08/15/19 Supervising Physician Co-Signing Physician Notes HISTORY: Care coordinated with Rafaela Tiwari PA-C. Doing well postoperatively. No chest pain, cough, SOB, nausea, vomiting. Pain well-controlled. EXAM: General- no distress Lungs- clear to auscultation; no respiratory distress Cardiovascular- RRR; no gallop; no JVD; trace pretibial edema Abdomen- + bowel sounds, soft, nontender Extremities- no cyanosis; no calf tenderness; left knee bandaged Neuro- alert, oriented Skin- warm & dry DATA: Hgb 10.0. K 3.3. Other lab studies as noted. ASSESSMENT AND PLAN: Doing well s/p left TKA. K low. On chlorthalidone. Receiving KCl. Discharge on KCl 20 mEq daily- Rx entered via discharge process. PCP to check f/u K in clinic. Please refer to BLAIR Tiwari's documentation for discussion of other issues. Thank you for this consultation. We will follow the patient with you during their hospital stay. My cell # is [phone]. You can reach a member of the [facility] Medicine Team 22/01 via pager @ [phone]. Subjective Patient was seen and examined in room 308-1. Follow-up left total knee arthroplasty POD #2. Overall she feels well this morning. Recently took analgesia. Pain currently 11/08. BM yesterday. Denies fever, chills, sweats, lightheadedness, dizziness, chest pain, shortness breath, nausea vomiting or diarrhea. Appetite is well. Physical therapy has gone well so far. She is being discharged home today. Review of Systems Review of Systems: All systems reviewed & are unremarkable except as noted in HPI & below Physical Exam Physical Exam: Gen: WD/WN, F, obese, NAD, A&O x3 HEENT: Normocephalic, atraumatic, conjunctivae moist, sclerae anicteric, mucous membranes moist. Lung: Clear to Auscultation bilaterally, no wheezes/rales/rhonchi Heart: Regular rate, regular rhythm, no murmurs, rubs, or gallops Abdomen: obese abd, Soft, NT, ND +BS x 4 Extremities: Trace LLE edema, dressing CDI, Ice pack in place. Teds b/l. No RLE Edema Skin: Warm, no rash, negative turgor. Results & Data ([facility]) Vital Signs (Past 12 Hours) Vital Signs Temp Pulse Resp BP Pulse Ox 08/15/19 06:22 106/60 08/15/19 06:07 36.5 C 51 L 16 99/62 L 97 08/14/19 23:11 36.5 C 53 L 16 107/69 97 Laboratory Results Short CBC 07/22/19 08/14/19 08/15/19 Range/Units 11:20 05:19 05:02 WBC 6.45 (4.8-10.8) K/uL Hgb 10.0 L (12.0-16.0) g/dL Hct 31.9 L (37-47) % Plt Count 213 (130-400) K/uL Potassium 3.4 L 3.2 L (3.5-5.1) mmol/L 08/15/19 Range/Units 05:02 WBC (4.8-10.8) K/uL Hgb (12.0-16.0) g/dL Hct (37-47) % Plt Count (130-400) K/uL Potassium 3.3 L (3.5-5.1) mmol/L BMP 08/15/19 05:02 Sodium 137 Potassium 3.3 L Chloride 103 Carbon Dioxide 29 BUN 23 H Creatinine 1.08 Glucose 110 H Calcium 8.5 Medications Administered Acetaminophen (Tylenol) 1,000 mg PO Q8 [facility] Stop: 09/12/19 13:59 Last Admin: 08/15/19 05:05 Dose: 1,000 mg Documented by: [id number] Admin: 08/14/19 21:24 Dose: 1,000 mg Documented by: [id number] Admin: 08/14/19 13:36 Dose: 1,000 mg Documented by: [id number] Admin: 08/14/19 05:18 Dose: 1,000 mg Documented by: [id number] Admin: 08/13/19 21:04 Dose: 1,000 mg Documented by: [id number] Admin: 08/13/19 13:18 Dose: 1,000 mg Documented by: [id number] Atenolol (Tenormin) 50 mg PO QA [facility] Stop: 09/13/19 08:59 Last Admin: 08/15/19 07:41 Dose: Not Given Documented by: [id number] Admin: 08/14/19 08:23 Dose: 50 mg Documented by: [id number] Celecoxib (Celebrex) 200 mg PO BID [facility] Stop: 09/12/19 20:59 Last Admin: 08/15/19 07:41 Dose: 200 mg Documented by: [id number] Admin: 08/14/19 21:22 Dose: 200 mg Documented by: [id number] Admin: 08/14/19 08:22 Dose: 200 mg Documented by: [id number] Admin: 08/13/19 21:04 Dose: 200 mg Documented by: [id number] Chlorthalidone (Hygroton) 25 mg PO QAM [facility] Stop: 09/13/19 08:59 Last Admin: 08/14/19 08:22 Dose: 25 mg Documented by: [id number] Docusate Sodium (Colace) 100 mg PO BID [facility] Stop: 09/12/19 20:59 Last Admin: 02/14/20 07:41 Dose: 100 mg Documented by: [id number] Admin: 08/14/19 21:22 Dose: 100 mg Documented by: [id number] Admin: 08/14/19 08:22 Dose: 100 mg Documented by: [id number] Admin: 08/13/19 21:04 Dose: 100 mg Documented by: [id number] [facility]othyroxine [facility]throid) [facility] Stop: 09/13/19 06:29 Last Admin: 08/15/19 05:05 Dose: 112 mcg Documented by: [id number] Admin: 08/14/19 05:18 Dose: 112 mcg Documented by: [id number] Multivitamins (Multivitamin Tab) 1 [facility] Stop: 09/13/19 08:59 Last Admin: 08/15/19 07:41 Dose: 1 tab Documented by: [id number] Admin: 08/14/19 08:22 Dose: 1 tab Documented by: [id number] Oxycodone HCl (Roxicodone Immediate Rel) 5 - 10 mg PO Q4H PRN PRN Reason: Pain or Pre PT Stop: 08/27/19 11:18 Last Admin: 08/15/19 09:04 Dose: 10 mg Documented by: [id number] Admin: 08/15/19 03:48 Dose: 10 mg Documented by: [id number] Admin: 08/14/19 20:22 Dose: 10 mg Documented by: [id number] Admin: 08/14/19 15:47 Dose: 10 mg Documented by: [id number] Admin: 08/14/19 11:49 Dose: 5 mg Documented by: [id number] Pantoprazole Sodium (Protonix) 40 mg PO DAILYBB [facility] Stop: 09/13/19 07:59 Last Admin: 08/15/19 05:05 Dose: 40 mg Documented by: [id number] Admin: 08/14/19 08:22 Dose: 40 mg Documented by: [id number] Rivaroxaban (Xarelto) 10 mg PO DAILY [facility] Stop: 09/13/19 08:59 Last Admin: 08/15/19 07:41 Dose: 10 mg Documented by: [id number] Admin: 08/14/19 08:23 Dose: 10 mg Documented by: [id number] Sennosides (Senokot) 17.2 mg PO [facility] Stop: 09/12/19 20:59 Last Admin: 08/14/19 21:25 Dose: 17.2 mg Documented by: [id number] Admin: 08/13/19 21:04 Dose: 17.2 mg Documented by: [id number] Vitamin D (Vitamin D3) 1,000 units PO DAILY [facility] Stop: 09/13/19 08:59 Last Admin: 08/15/19 07:41 Dose: 1,000 units Documented by: [id number] Admin: 08/14/19 08:22 Dose: 1,000 units Documented by: [id number] Discontinued Medications Acetaminophen (Tylenol) 1,000 mg PO PREOP [facility] Stop: 08/13/19 18:00 Last Admin: 08/13/19 05:51 Dose: 1,000 mg Documented by: [id number] Bacitracin (Bacitracin) Confirm Administered Dose 50,000 units .ROUTE .STK-MED ONE Stop: 08/13/19 06:45 Last Admin: 08/13/19 08:50 Dose: 50,000 units Documented by: [id number] Celecoxib (Celebrex) Confirm Administered Dose 200 mg .ROUTE .STK-MED ONE Stop: 08/13/19 06:52 Last Admin: 08/13/19 06:52 Dose: 200 mg Documented by: [id number] Dexamethasone (Decadron) 8 mg PO PREOP [facility] Stop: 08/13/19 18:00 Last Admin: 08/13/19 05:50 Dose: 8 mg Documented by: [id number] Famotidine (Pepcid) 20 mg PO PREOP [facility] Stop: 08/13/19 18:00 Last Admin: 08/13/19 05:51 Dose: 20 mg Documented by: [id number] Gabapentin (Neurontin) 600 mg PO PREOP [facility] Stop: 08/13/19 18:00 Last Admin: 08/13/19 05:51 Dose: 600 mg Documented by: [id number] Lactated Ringer's (Lr) 1,000 mls @ 15 mls/hr IV .Q24H [facility] Stop: 08/13/19 18:00 Last Infusion: 08/13/19 07:14 Dose: 0 mls/hr Documented by: [id number] Admin: 08/13/19 05:49 Dose: 15 mls/hr Documented by: [id number] Vancomycin HCl 2,000 mg/ (Sodium Chloride) 540 mls @ 200 mls/hr IV PREOP [facility] Stop: 08/14/19 05:59 Last Infusion: 08/13/19 11:28 Dose: 0 mls/hr Documented by: [id number] Admin: 08/13/19 05:50 Dose: 200 mls/hr Documented by: [id number] Tranexamic Acid (Tranexamic Acid / 0.7% Nacl) 1,000 mg in 100 mls @ 600 mls/hr IV TODAY@0600 [facility] Stop: 08/13/19 18:00 Last Infusion: 08/13/19 07:05 Dose: 0 mls/hr Documented by: [id number] Admin: 08/13/19 06:55 Dose: 600 mls/hr Documented by: [id number] Tranexamic Acid (Tranexamic Acid / 0.7% Nacl) 1,000 mg in 100 mls @ 600 mls/hr IV TODAY@0600 [facility] Stop: 08/13/19 18:00 Last Infusion: 08/13/19 11:27 Dose: 0 mls/hr Documented by: [id number] Admin: 08/13/19 08:50 Dose: 600 mls/hr Documented by: [id number] Ropivacaine 150 mg/Bupivacaine HCl 30 ml/Epinephrine HCl 0.15 mg/Ketorolac Tromethamine 30 mg/Dexamethasone 4 mg/ Ketamine HCl 10 mg/ Clonidine HCl 100 mcg/ Sodium Chloride 93.35 mls @ 0 mls/hr INSTIL PREOP [facility] Stop: 08/13/19 18:00 Last Admin: 08/13/19 08:50 Dose: 93.35 mls/hr Documented by: [id number] Sodium Chloride (Nss 1000ml) 1,000 mls @ 100 mls/hr IV .Q10H [facility] Stop: 08/14/19 06:00 Last Admin: 08/14/19 01:00 Dose: Not Given Documented by: [id number] Infusion: 08/14/19 00:58 Dose: 0 mls/hr Documented by: [id number] Admin: 08/13/19 12:06 Dose: 100 mls/hr Documented by: [id number] Vancomycin HCl 2,000 mg/ (Sodium Chloride) 540 mls @ 200 mls/hr IV Q12H [facility] Stop: 08/13/19 23:59 Last Infusion: 08/13/19 21:02 Dose: 0 mls/hr Documented by: [id number] Admin: 08/13/19 17:32 Dose: 200 mls/hr Documented by: [id number] Metoclopramide HCl (Reglan) 10 mg PO PREOP [facility] Stop: 08/13/19 18:00 Last Admin: 08/13/19 05:51 Dose: 10 mg Documented by: [id number] Miscellaneous (Ortho Joint Anesthetic) Confirm Administered Dose 1 ea .ROUTE .STK-MED ONE Stop: 08/13/19 06:49 Last Admin: 08/13/19 08:53 Dose: Not Given Documented by: [id number] Potassium Chloride (Klor-Con M20) 40 meq PO NOW STA Stop: 08/14/19 07:41 Last Admin: 08/14/19 08:22 Dose: 40 meq Documented by: [id number] Potassium Chloride (Klor-Con M20) 40 meq PO NOW ONE Stop: 08/15/19 07:12 Last Admin: 08/15/19 07:40 Dose: 40 meq Documented by: [id number]
== END 2019-08-15 12:43 | disposition home health service (06) | DRG 470 ==
LOC: ASU 04:57 → 3E 11:12